=== PATIENT | female | born 2000 | race Caucasian/White ===

== ENCOUNTER 2024-06-04 22:17 | Emergency (ER) | payer MEDICAID ==
[~2024-06-04] VITALS: Ht 157.5 cm; Wt 83.6 kg
[~2024-06-04 22:17] MED LIST: DIPH-423 PO
[2024-06-04] MEDS ORDERED: AMOX-580 PO (22:44)
[2024-06-04] MEDS: amox tr/potassium clavulanate 875/125mg TAB PO ONE (22:50)
[2024-06-04] MEDS: TETanus/Pertussis (Acell)/Diphther VAC/PF (Tdap-Adult) 0.5ml syringe IMVAC ONE (22:52)
[2024-06-04 23:02] VITALS: BP 124/80; PULSE 70; RESP 16; TEMP 97.6; O2SAT 99
== END 2024-06-04 23:08 | disposition home or self-care (01) ==
LOC: ER 22:18
DX: S81.851A Open bite, right lower leg, initial encounter (principal); W55.41XA Bitten by pig, initial encounter; Y93.89 Activity, other specified; Y92.89 Other specified places as the place of occurrence of the external cause; Y99.8 Other external cause status
CPT/HCPCS: 90471; 90715; 99283

== ENCOUNTER 2024-08-17 11:40 | Emergency (ER) | payer MEDICAID ==
[~2024-08-17] VITALS: Ht 157.5 cm; Wt 80.9 kg
[2024-08-17 11:54] VITALS: BP 138/63; PULSE 100; RESP 18; TEMP 98.5; O2SAT 97
--- NOTE | 2024-08-17 12:21 | RADIOLOGY REPORT ---
CLINICAL INDICATION: ARM PAIN TECHNIQUE: 2 radiographic views of the left forearm were obtained. Comparison: None FINDINGS/IMPRESSION: There is no evidence of acute fracture or dislocation. The visualized joint space is well maintained. The alignment is anatomical. There is no radiopaque foreign body.
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
== END 2024-08-17 13:48 | disposition home or self-care (01) ==
LOC: ER 11:41
DX: S66.911A Strain of unspecified muscle, fascia and tendon at wrist and hand level, right hand, initial encounter (principal); S50.11XA Contusion of right forearm, initial encounter; X58.XXXA Exposure to other specified factors, initial encounter; Y93.89 Activity, other specified; Y92.89 Other specified places as the place of occurrence of the external cause; Y99.8 Other external cause status
CPT/HCPCS: 29125; 73090; 99283